=== PATIENT | female | born 1955 | race African-American/Black ===

== ENCOUNTER 2021-09-16 19:42 | Inpatient (IN) | payer MEDICARE ==
[~2021-09-16] VITALS: Ht 180.3 cm; Wt 91.4 kg
[2021-09-16 20:10] LABS: BASO % 0.4 % (0.0-2.0); EOS % 0.4 % (0.0-4.0); GRAN # 6.6 K/mm3 (1.4-6.5); GRAN % 72.2 % (42.2-75.2); LYMPH # 1.6 K/mm3 (1.2-3.4); LYMPH % 17.4 % (20.0-51.0); MEAN CELL VOLUME 57 fl (80.0-100.0); MEAN CORPUSCULAR HGB CONC 23 g/dl (33.0-37.0); MONO # 0.8 K/mm3 (0.1-0.6); MONO % 9.3 % (1.7-9.3); PLATELET COUNT 408 K/mm3 (130-400); RED BLOOD COUNT 3.84 M/mm3 (4.10-5.30); REDCELL DISTRIBUTION WIDTH-CV 23.5 % (11.5-14.5)
[2021-09-16 20:15] LABS: COLLECTION METHOD CLEAN CATCH
[2021-09-16 20:16] LABS: HEMATOCRIT 21.9 % (37.0-47.0); MEAN CORPUSCULAR HEMOGLOBIN 13 pg (27-31)
[2021-09-16 20:25] LABS: ALBUMIN 3.8 gm/dL (3.4-4.8); BILIRUBIN,TOTAL 0.9 mg/dL (0.2-1.2); CALCIUM 9.1 mg/dL (8.4-10.2); CREATININE, serum 0.85 mg/dL (0.57-1.11); POTASSIUM 3.8 mmol/L (3.5-4.5)
[2021-09-16 20:27] LABS: INR 1.5 (0.8-3.0); PROTHROMBIN TIME 16.7 SECONDS (9.7-12.8)
[2021-09-16 20:27] LABS: MUCOUS Present (NOT PRESENT); PH 5 (5-8); SQUAMOUS EPITHELIAL 0-2 /hpf (0-10); URINE APPEARANCE Hazy (CLEAR/HAZY); URINE BACTERIA Rare /hpf (NONE SEEN); URINE BILIRUBIN Negative (NEGATIVE); URINE BLOOD Negative (NEGATIVE); URINE COLOR Yellow (YELLOW); URINE GLUCOSE Negative (NEGATIVE); URINE KETONE Negative (NEGATIVE); URINE LEUKOCYTE ESTERASE Negative (NEGATIVE); URINE NITRATE Negative (NEGATIVE); URINE PROTEIN(semi-quant) 1+ (NEGATIVE); URINE RBC 0-2 /hpf (0-2); URINE UROBILINOGEN Negative (NEGATIVE)
--- NOTE | 2021-09-16 23:09 | NUR ---
2309- REPORT RECEIVED FROM LANE [facility]GUS[facility]. 2330- PT TO ROOM 222 PER WHEELCHAIR. UPDATE RECEIVED FROM LANE [facility]. BLOOD NOT READY YET. 2340- ASSESSMENT COMPLETED CHARTED. PT ORIENTED TO ROOM AND CALL LIGHTS. PLAN OF CARE DISCUSSED AND QUESTIONS ANSWERED.
[2021-09-16 23:40] VITALS: BP 157/69; PULSE 96; TEMP 98.8
[2021-09-17] VITALS (21 sets, daily range): BP systolic 15–149; BP diastolic 42–72; PULSE 67–98; TEMP 97.9–99.4
[2021-09-17 06:26] LABS: BASO # 0.1 K/mm3 (0.0-0.2); BASO % 1.1 % (0.0-2.0); EOS # 0.2 K/mm3 (0.0-0.7); EOS % 3.4 % (0.0-4.0); GRAN % 46.6 % (42.2-75.2); LYMPH # 2.2 K/mm3 (1.2-3.4); LYMPH % 34.3 % (20.0-51.0); MEAN CORPUSCULAR HGB CONC 25 g/dl (33.0-37.0); MONO # 0.9 K/mm3 (0.1-0.6); MONO % 14.3 % (1.7-9.3); RED BLOOD COUNT 4.04 M/mm3 (4.10-5.30); REDCELL DISTRIBUTION WIDTH-CV 29.3 % (11.5-14.5)
[2021-09-17 06:38] LABS: CALCIUM 8.4 mg/dL (8.4-10.2); CREATININE, serum 0.71 mg/dL (0.57-1.11); POTASSIUM 3.8 mmol/L (3.5-4.5)
[2021-09-17 06:45] LABS: HEMATOCRIT 26.1 % (37.0-47.0); MEAN CORPUSCULAR HEMOGLOBIN 16 pg (27-31)
[2021-09-17 06:46] LABS: HEMOGLOBIN 6.6 g/dl (12.5-16.0); MEAN CELL VOLUME 65 fl (80.0-100.0); PLATELET COUNT 279 K/mm3 (130-400)
[2021-09-17] MEDS ORDERED: FERRO-TIME325 MG PO (12:15)
[2021-09-17] MEDS ORDERED: FOLIC ACID 11 MG/TA1 PO (12:16)
--- NOTE | 2021-09-17 16:45 | NUR ---
This Rn walks patient to ER entrance. ambulating well. stable at discharge.
== END 2021-09-17 16:45 | disposition home or self-care (01) | DRG 812 ==
LOC: COL.ER 19:42 → OB 22:02
PROVIDERS: Nurse Practitioner Family; Physician Assistant; ADMIT Internal Medicine
PROC: 30233N1 Transfusion of Nonautologous Red Blood Cells into Peripheral Vein, Percutaneous Approach (ICD-10-PCS; principal; 2021-09-17)
DX: D62 Acute posthemorrhagic anemia (principal); E87.2 Acidosis; D25.9 Leiomyoma of uterus, unspecified; N95.0 Postmenopausal bleeding; N85.01 Benign endometrial hyperplasia; I10 Essential (primary) hypertension; D75.839 Thrombocytosis, unspecified; E87.8 Other disorders of electrolyte and fluid balance, not elsewhere classified; E11.65 Type 2 diabetes mellitus with hyperglycemia; Z87.891 Personal history of nicotine dependence
CPT/HCPCS: 99223-AI; 99239; J1940; J7030; P9016; Q9967

== ENCOUNTER 2021-12-08 12:03 | Day surgery (SDC) | payer MEDICARE ==
[~2021-12-08] VITALS: Ht 177.8 cm; Wt 89.1 kg
[~2021-12-08 12:03] MED LIST: FERRO-TIME325 MG PO; FOLIC ACID 11 MG/TA1 PO
[2021-12-08 13:20] VITALS: BP 145/79; PULSE 77; TEMP 98
[2021-12-08] MEDS ORDERED: ASPIRIN E.C. 8181 MG PO (13:30)
[2021-12-08] MEDS ORDERED: OSCAL 500 TAB500 MG PO (13:30)
[2021-12-08] MEDS ORDERED: EPA FISH OIL1 SGL PO (13:31)
[2021-12-08] MEDS ORDERED: MOTRIN 400400 MG/TAB PO (13:32)
[2021-12-08] MEDS ORDERED: NIZORAL CR 30GM TOP (13:33)
[2021-12-08] MEDS ORDERED: COZAAR 25MG25 MG/TAB PO (13:33)
[2021-12-08] MEDS ORDERED: NATURAL MAGNES200 MG PO (13:34)
[2021-12-08] MEDS ORDERED: GLUCOPHAGE1000 MG PO (13:35)
[2021-12-08 14:19] VITALS: BP 116/71; PULSE 66
--- NOTE | 2021-12-08 14:19 | NUR ---
Patient returns to room 8 from surgery and is awake and alert. Patient is accompanied by Raffy Choi CRNA and Jaspal FERGUSON. IV fluids infusing and site is free of redness. Exofin skin glue to right port a cath insertion site is dry. Temp 97.5 and room air sats 97%. Siderails up x2 and call light in reach. Family member in room.
[2021-12-08 14:34] VITALS: BP 162/72; PULSE 62
[2021-12-08] MEDS ORDERED: NORCO 325 MG-51 TAB PO (14:34)
--- NOTE | 2021-12-08 14:34 | NUR ---
Sipping grape juice. Denies pain or nausea.
[2021-12-08 14:49] VITALS: BP 133/81; PULSE 64
--- NOTE | 2021-12-08 14:49 | NUR ---
Eating muffin and drinking grape juice. Room air sats 97%.
[2021-12-08 15:04] VITALS: BP 144/84; PULSE 63
--- NOTE | 2021-12-08 15:04 | NUR ---
IV to INT. Tolerated snack and juice.
--- NOTE | 2021-12-08 15:10 | NUR ---
INT discontinued and site is free of redness or swelling. Sitting on edge of bed and tolerates activity well.
--- NOTE | 2021-12-08 15:12 | NUR ---
Patient is dressed and assisted into wheelchair.
--- NOTE | 2021-12-08 15:20 | NUR ---
Dismissal instructions given and voices understanding of these. Provided office number for any questions or concerns.
--- NOTE | 2021-12-08 15:25 | NUR ---
Patient taken to vehicle per wheelchair and assisted into car with dismissal instructions in hand.
== END 2021-12-08 15:25 | disposition home or self-care (01) ==
LOC: SDCO 12:03
DX: C54.1 Malignant neoplasm of endometrium (principal); I10 Essential (primary) hypertension; E11.42 Type 2 diabetes mellitus with diabetic polyneuropathy; Z79.84 Long term (current) use of oral hypoglycemic drugs; Z79.82 Long term (current) use of aspirin
CPT/HCPCS: C1788; J0690; J1644; J2704; J3010; J7120